=== PATIENT | female | born 1960 | race Caucasian/White ===

== ENCOUNTER 2017-02-17 14:08 | Emergency (ER) | payer MEDICARE ==
[~2017-02-17] VITALS: Ht 167.6 cm; Wt 157.0 kg
[2017-02-17 14:16] VITALS: BP 169/112; PULSE 108; RESP 16; TEMP 98.2; O2SAT 97
[2017-02-17] MEDS ORDERED: OMEP20TA PO (15:02)
[2017-02-17] MEDS ORDERED: PERC5TAB12 PO (15:02)
[2017-02-17] MEDS ORDERED: AMLO10TA2 PO (15:02)
[2017-02-17] MEDS ORDERED: LISI-515 PO (15:02)
[2017-02-17] MEDS ORDERED: GABA800T PO (15:02)
[2017-02-17] MEDS ORDERED: SODIUM CHLOR 0.9% 1000 ML INJ 1,000 ML IV SCH (15:03)
[2017-02-17] MEDS ORDERED: KETOROLAC TROMETHAMINE 30 MG/ML (IVP) VIAL IVP ONE (15:15)
[2017-02-17] MEDS ORDERED: ONDANSETRON HCL 4 MG/2 ML VIAL IVP ONE (15:15)
[2017-02-17] MEDS ORDERED: SODIUM CHLORIDE 0.9% FLUSH 10 ML FLUSH IV FLUSH PRN (15:15)
[2017-02-17 15:16] VITALS: O2SAT 98
[2017-02-17 15:19] LABS: AUTOMATED NEUTROPHIL # 5.3 TH/MM3 (1.8-7.7); BASOPHIL % 0.4 % (0.0-2.0); EOSINOPHIL % 0.4 % (0.0-4.0); HEMO FLAGS DIFF FINAL; LYMPH % 15.8 % (9.0-44.0); LYMPHOCYTE # 1.1 TH/MM3 (1.0-4.8); MEAN CELL VOLUME 89.8 FL (80.0-100.0); MEAN CORPUSCULAR HEMOGLOBIN 31.4 PG (27.0-34.0); MONO % 5.8 % (0.0-8.0); NEUT % 77.6 % (16.0-70.0); PLATELET COUNT 182 TH/MM3 (150-450); RED BLOOD COUNT 4.12 MIL/MM3 (4.00-5.30); RED CELL DISTRIBUTION WIDTH 13.4 % (11.6-17.2); WHITE BLOOD COUNT 6.8 TH/MM3 (4.0-11.0)
[2017-02-17 15:24] VITALS: BP 133/73; PULSE 94; RESP 20; O2SAT 96
[2017-02-17 15:27] LABS: CHLORIDE 110 MEQ/L (98-107); POTASSIUM 4.3 MEQ/L (3.5-5.1); SODIUM (NA) 144 MEQ/L (136-145)
[2017-02-17 15:31] LABS: ANION GAP 10 MEQ/L (5-15); BICARBONATE 24.4 MEQ/L (21.0-32.0); BLOOD UREA NITROGEN 16 MG/DL (7-18)
[2017-02-17 15:34] LABS: ALT (GPT) 38 U/L (10-53); AST (GOT) 27 U/L (15-37); GLOMERULAR FILTRATION RATE 57 ML/MIN (>89)
[2017-02-17 15:35] LABS: TOTAL BILIRUBIN ADULT 1.3 MG/DL (0.2-1.0)
[2017-02-17 15:37] LABS: ALKALINE PHOSPHATASE 65 U/L (45-117)
[2017-02-17 15:46] LABS: BLOOD, URINE MOD (NEG); GLUCOSE,URINE NEG (NEG); KETONE, URINE NEG (NEG); METHOD OF COLLECTION CLEAN CATCH; NITRITE,URINE NEG (NEG); URINE COLOR YELLOW (YELLW/STRAW)
[2017-02-17 15:57] LABS: COMMENT (UR) CULTURE INDICATED; CULTURE IF INDICATED CULTURE INDICATED; SQUAMOUS EPITHELIAL CELL URINE 0-5 /hpf (0-5)
--- NOTE | 2017-02-17 16:04 | PD ---
HPI Chief Complaint: Flank/Kidney Pain Time Seen by Provider: 14:54 Travel History International Travel<30 days: No Contact w/Intl Traveler<30days: No Traveled to known affect area: No History of Present Illness HPI This is a 56-year-old female who recently moved from [place] one month ago who reports right sided flank pain, constant, moderate severity associated with nausea and blood in her urine, with no associated fevers or chills, similar to prior pain when she's had kidney stones. 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 She says she takes Percocet chronically for pain. She said she ran out of her Percocet recently because she moved from [place] and hasn't been able to find a new doctor. She also reports she has chronic sciatica. She says she hasn't come to the ER sooner because her ex- wouldn't take her, but yesterday she broke up with him so her mom brought her to the emergency department today. PFSH Past Medical History Hx Anticoagulant Therapy: No Cardiovascular Problems: Yes (HTN) Diabetes: No GERD: Yes Hypertension: Yes Inguinal Hernia: Yes Medical other: Yes (BOWEL BLOCKAGE) ?: Not Past Surgical History Abdominal Surgery: Yes (RUPTURED BOWEL, COLOSTOMY, REPAIR) Other Surgery: Yes (KIDNEY, MULTIPLE) Social History Alcohol Use: No Tobacco Use: Yes Substance Use: No Allergies-Medications (Allergen,Severity, Reaction): Coded Allergies: No Known Allergies (Unverified , 02/17/17) Reported Meds & Prescriptions Reported Meds & Active Scripts Active Reported Omeprazole 20 Mg Tab 20 Mg PO DAILY Gabapentin 800 Mg Tab 800 Mg PO TID Amlodipine (Amlodipine Besylate) 10 Mg Tab 40 Mg PO HS Lisinopril 20 Mg Tab 20 Mg PO BID Percocet (Oxycodone-Acetaminophen) 5-325 mg Tab 1 Tab PO Q6H PRN Review of Systems Except as stated in HPI: all other systems reviewed are Neg Physical Exam Narrative GENERAL: Morbidly obese, no acute distress SKIN: Warm and dry. HEAD: Atraumatic. Normocephalic. EYES: Pupils equal and round. No injection or drainage. ENT: Moist mucous membranes NECK: Trachea midline. CARDIOVASCULAR: Regular rate and rhythm. No murmur appreciated. RESPIRATORY: Clear to auscultation. Breath sounds equal bilaterally. GASTROINTESTINAL: Abdomen soft, tender to palpation in the right upper quadrant and right lower quadrants with no rebound or guarding : Right CVA tenderness. MUSCULOSKELETAL: No obvious deformities. NEUROLOGICAL: Awake and alert. No obvious cranial nerve deficits. Moving all extremities. PSYCHIATRIC: Appropriate mood and affect; insight and judgment normal. Data Data Last Documented VS Vital Signs Date Time Temp Pulse Resp B/P Pulse Ox O2 Delivery O2 Flow Rate FiO2 02/17/17 16:21 84 20 155/82 96 02/17/17 14:16 98.2 Orders Complete Blood Count With Diff (02/17/17 15:03) Comprehensive Metabolic Panel (02/17/17 15:03) Urinalysis - C+S If Indicated (02/17/17 15:03) Ct Abd/Pel W/O Iv Contrast (02/17/17 15:03) Iv Access Insert/Monitor (02/17/17 15:03) Ecg Monitoring (02/17/17 15:03) Oximetry (02/17/17 15:03) Ondansetron Inj (Zofran Inj) (02/17/17 15:15) Sodium Chlor 0.9% 1000 Ml Inj (Ns 1000 M (02/17/17 15:03) Sodium Chloride 0.9% Flush (Ns Flush) (02/17/17 15:15) Ketorolac Inj (Toradol Inj) (02/17/17 15:15) Urine Culture (02/17/17 15:15) Ceftriaxone Inj (Rocephin Inj) (02/17/17 17:00) Labs Laboratory Tests Test 02/17/17 02/17/17 15:10 15:15 White Blood Count 6.8 TH/MM3 Red Blood Count 4.12 MIL/MM3 Hemoglobin 12.9 GM/DL Hematocrit 37.0 % Mean Corpuscular Volume 89.8 FL Mean Corpuscular Hemoglobin 31.4 PG Mean Corpuscular Hemoglobin 35.0 % Concent Red Cell Distribution Width 13.4 % Platelet Count 182 TH/MM3 Mean Platelet Volume 8.6 FL Neutrophils (%) (Auto) 77.6 % Lymphocytes (%) (Auto) 15.8 % Monocytes (%) (Auto) 5.8 % Eosinophils (%) (Auto) 0.4 % Basophils (%) (Auto) 0.4 % Neutrophils # (Auto) 5.3 TH/MM3 Lymphocytes # (Auto) 1.1 TH/MM3 Monocytes # (Auto) 0.4 TH/MM3 Eosinophils # (Auto) 0.0 TH/MM3 Basophils # (Auto) 0.0 TH/MM3 CBC Comment DIFF FINAL Differential Comment Sodium Level 144 MEQ/L Potassium Level 4.3 MEQ/L Chloride Level 110 MEQ/L Carbon Dioxide Level 24.4 MEQ/L Anion Gap 10 MEQ/L Blood Urea Nitrogen 16 MG/DL Creatinine 1.00 MG/DL Estimat Glomerular Filtration 57 ML/MIN Rate Random Glucose 163 MG/DL Calcium Level 9.3 MG/DL Total Bilirubin 1.3 MG/DL Aspartate Amino Transf 27 U/L (AST/SGOT) Alanine Aminotransferase 38 U/L (ALT/SGPT) Alkaline Phosphatase 65 U/L Total Protein 7.8 GM/DL Albumin 3.9 GM/DL Urine Collection Type CLEAN CATCH Urine Color YELLOW Urine Turbidity CLEAR Urine pH 6.0 Urine Specific [place] 1.011 Urine Protein 100 mg/dL Urine Glucose (UA) NEG mg/dL Urine Ketones NEG mg/dL Urine Occult Blood MOD Urine Nitrite NEG Urine Bilirubin NEG Urine Leukocyte Esterase MOD Urine RBC 10-14 /hpf Urine WBC 50-99 /hpf Urine WBC Clumps FEW Urine Squamous Epithelial 0-5 /hpf Cells Microscopic Urinalysis Comment CULTURE INDICATED MDM Medical Decision Making Medical Screen Exam Complete: Yes Emergency Medical Condition: Yes Interpretation(s) Afebrile, tachycardic, hypertensive No leukocytosis Electrolytes are reassuring Urinalysis demonstrates a urinary tract infection with some blood CT abdomen and pelvis: 2 large stones involving the right kidney with no hydronephrosis or hydroureter Differential Diagnosis Pyelonephritis, nephrolithiasis, sepsis Narrative Course This is a 56-year-old female who presents to the emergency department with right sided flank pain. She has a history of staghorn calculus in the past and she says she has two large known kidney stones. She is placed on a monitor and an IV was established. Labs are reassuring with no leukocytosis. She was afebrile. She does have evidence of blood and a possible urinary tract infection. Her pain may be due to pyelonephritis. She has no stone in the ureter to suggest pain secondary to nephrolithiasis. Patient will be discharged on anti-inflammatories per she was given a dose of IM ceftriaxone because she has difficult IV access, and she'll be discharged with Keflex. Diagnosis Primary Impression: Pyelonephritis Patient Instructions: General Instructions Additional Instructions: If you develop fever, persistent vomiting, back pain, or inability to eat return to the emergency department as your urine infection may have progressed to a kidney infection. Complete your antibiotics as prescribed. Stay well hydrated with Gatorade or water. Followup with your primary care physician in 2-3 days if your symptoms have not resolved. Med/Other Pt SpecificInfo: Prescription(s) given Scripts Naproxen 500 Mg [id number] Mg PO BID PRN (PAIN SCALE 4 TO 10) #20 TAB Ref 0 Prov:Racheal Jj MD 02/17/17 Ondansetron Odt (Zofran Odt)4 Mg Tab4 Mg SL Q6HR PRN (Nausea/Vomiting) #10 TAB Ref 0 Prov:Racheal Jj MD 02/17/17 Cephalexin (Keflex)500 Mg [id number] Mg PO Q12H 7 Days Ref 0 Prov:Racheal Jj MD 02/17/17 Disposition: 01 DISCHARGE HOME Condition: Stable Racheal Jj MD Feb 17, 2017 16:04
[2017-02-17 16:21] VITALS: BP 155/82; PULSE 84; RESP 20; O2SAT 96
[2017-02-17] MEDS ORDERED: cefTRIAXone INJ 1,000 MG in SODIUM CHLORIDE 0.9% INJ 100 ML IV ONE (17:00)
--- NOTE | 2017-02-17 17:00 | RADHPO ---
EXAM DATE/TIME: 02/17/2017 15:49 [facility] COMPARISON: No previous studies available for comparison. INDICATIONS : Right flank pain. ORAL CONTRAST: No oral contrast ingested. RADIATION DOSE: 23.43 CTDIvol (mGy) MEDICAL HISTORY : Hypertension. SURGICAL HISTORY : Appendectomy. Cholecystectomy.Umbilical hernia repair. ENCOUNTER: Initial ACUITY: 3 weeks PAIN SCALE: 8/10 LOCATION: Right flank TECHNIQUE: Volumetric scanning of the abdomen and pelvis was performed. Using automated exposure control and ad justment of the mA and/or kV according to patient size, radiation dose was kept as low as reasonably achievable to obtain optimal diagnostic quality images. FINDINGS: Examination of the lung bases demonstrates no abnormality. No pleural fluid is identified. No pulmona ry nodules are present. The liver and spleen are normal in size and no focal defects are identified. There is a small amount of air in the biliary tree in this patient status post cholecystectomy. This may reflect sphincterotomy. The pancreas demonstrates no evidence of mass and there is no dilatation of the pancreatic duct. The adrenal glands are unremarkable. The left kidney is unremarkable. There a re 2 stones in the right kidney one in the upper pole measuring 10 mm with a second larger stone in t he lower pole extending into the infundibulum measuring 18 mm. No ureteral stone is identified. An intrauterine device is present within the uterus. There is diastases of the rectus muscles with sm all loops protruding into the wide defect without incarceration. There is diverticulosis without evid ence of diverticulitis. CONCLUSION: 1. 2 large stones involving the right kidney without evidence of hydronephrosis or hydroureter. The l argest measures 18 mm. 2. Diverticulosis without evidence of diverticulitis. 3. Intrauterine device is present Dragan Fine MD on February 17, 2017 at 16:52 Board Certified Radiologist. This report was verified electronically.
[2017-02-17 17:04] VITALS: BP 142/78; PULSE 106; RESP 20; O2SAT 97
[2017-02-17] MEDS ORDERED: ZOFR4TAB3 SL (17:06)
[2017-02-17] MEDS ORDERED: CEPH-460 PO (17:06)
[2017-02-17] MEDS ORDERED: NAPR500T PO (17:06)
== END 2017-02-17 17:47 | disposition home or self-care (01) ==
LOC: PHED 14:08
DX: N12 Tubulo-interstitial nephritis, not specified as acute or chronic (principal); B96.4 Proteus (mirabilis) (morganii) as the cause of diseases classified elsewhere; I10 Essential (primary) hypertension; Z72.0 Tobacco use
CPT/HCPCS: 74176; 80053; 81001; 85025; 87077; 87086; 87186; 96361; 96372; 96374; 96375; 99285; J0696; J1885; J2405; J7030